=== PATIENT | male | born 1975 | race Two or more races ===

== ENCOUNTER 2017-02-23 22:53 | Emergency (ER) | payer MEDICAID, OTHER ==
[~2017-02-23] VITALS: Ht 170.2 cm; Wt 77.1 kg
[~2017-02-23 22:53] MED LIST: COMPLERA TABLE1 EACH ORAL
[2017-02-23 23:10] VITALS: BP 155/68
[2017-02-23 23:30] VITALS: BP 155/68
[2017-02-23] MEDS ORDERED: BACITRACIN ZIN1 EACH TOPIC (23:33)
--- NOTE | 2017-02-24 04:39 | Emergency Room Report ---
History of Present Illness General Chief Complaint: Medical Clearance Source: Patient Present Illness HPI Patient is a 42-year-old male brought in by layout mechanic after reportedly been taking to the ground. The patient denied loss of consciousness. He reports having up-to-date tetanus vaccine. He has prior history of HIV. Patient was noted to have some abrasions to his face and excoriations. Allergies: Uncoded Allergies: SULFA (Allergy, Unknown, 10/09/15) Patient History Past Medical History: see triage record Reviewed Nursing Documentation: PMH: Agreed, PSxH: Agreed Review of Systems All Other Systems: negative except mentioned in HPI Physical Exam Vital Signs Date Time Temp Pulse Resp B/P (MAP) Pulse Ox O2 Delivery O2 Flow Rate FiO2 02/23/17 22:54 98.1 118 16 175/77 97 Room Air General Appearance: well appearing, no apparent distress, alert, GCS 15, non- toxic Head: normocephalic, atraumatic ENT: hearing grossly normal, normal voice Neck: full range of motion, supple Respiratory: no respiratory distress, speaking full sentences Cardiovascular #1: normal inspection, normal peripheral pulses Gastrointestinal: normal inspection Musculoskeletal: no calf tenderness Neurologic: normal inspection, alert, oriented x3, normal gait Psychiatric: mood/affect normal Skin: other, abrasions - multiple excoriated lesions to face Medical Decision Making Diagnostic Impression: Primary Impression: Skin rash ER Course Patient presented for skin rash. Differential diagnosis include was not limited to abrasion, excoriation, head trauma, spinal injury among others. Patient's benign exam and does not appear to require any further imaging or laboratory testing at this time. The patient's cervical spine was clinically cleared. Patient is awake and alert.The patient is advised to follow up with primary care doctor in 1-2 days. Patient is advised to return if any worsening condition or if any changes in status that are concerning. Patient was medically cleared for incarceration Last Vital Signs Date Time Temp Pulse Resp B/P (MAP) Pulse Ox O2 Delivery O2 Flow Rate FiO2 02/23/17 23:30 98.1 84 16 155/68 97 Room Air Status: improved Disposition: D/C TO LAW ENFORCEMENT IN [facility] Condition: Stable Scripts Bacitracin Zinc* (BACITRACIN ZINC*) 1 Each Packet 1 APPLIC TOPIC THREE TIMES A DAY, #30 PACKET Prov: Max Bunch 02/23/17 Departure Forms: Care Home Clearance Patient Instructions: Rash Julio C,Max Feb 24, 2017 04:39
== END 2017-02-23 23:35 ==
LOC: EMR 23:31
DX: R21 Rash and other nonspecific skin eruption (principal); S00.81XA Abrasion of other part of head, initial encounter; X58.XXXA Exposure to other specified factors, initial encounter; Y93.9 Activity, unspecified; Y92.9 Unspecified place or not applicable; Z88.2 Allergy status to sulfonamides
CPT/HCPCS: 99283